=== PATIENT | female | born 1965 | race Caucasian/White ===

== ENCOUNTER 2019-08-07 12:36 | Day surgery (SDC) | payer BC ==
[2019-08-07] MEDS ORDERED: LIDOCAINE 2% MDV (20MG/ML) 20ML VIAL IV ONE (12:37)
[2019-08-07] MEDS ORDERED: PROPOFOL 10 MG/ML VIAL IV ONE (12:37)
--- NOTE | 2019-08-09 10:10 | Operative Note ---
OPERATION: COLONOSCOPY to the cecum with cold biopsy forceps polypectomy x1. INDICATION: Colorectal cancer screening. ANESTHESIA: Intravenous sedation was administered by the department of anesthesiology and included Diprivan titrated to effect. PROCEDURE: Following informed consent from this alert individual including a discussion of the risks and benefits of the procedure and an opportunity for the patient to ask questions, the patient was in the left lateral decubitus position. A digital rectal examination was performed. No abnormalities were noted. Following this, the Olympus [id number] video colonoscope was inserted into the rectum without resistance. The rectal mucosa initially as visualized had a normal appearance with normal folds and distensibility. There was some retained liquid and semi-solid stool noted. The colonoscope was advanced up to the level of the cecum with some difficulty due mostly to retained liquid and semi-solid stool. Washing and suctioning was employed vigorously throughout. The cecum was defined by noting the appendiceal orifice and ileocecal valve. From the base of the cecum, the colonoscope was slowly withdrawn. Again washing and suctioning was employed vigorously; however, there was retained semi-solid stool noted. As best visualized, no mucosal changes were appreciated until the rectum was reached. With retroflexion within the rectum, there was a diminutive distal rectal polyp which was removed by cold biopsy forceps. The endoscope was straightened and withdrawn. The patient tolerated the procedure well and was returned to the recovery area in stable condition. IMPRESSION: 1. Diminutive 3 mm distal rectal polyp removed with biopsy forceps. 2. Fair to poor colon preparation. RECOMMENDATIONS: Further recommendations will be forthcoming pending results of pathology obtained today. I did recommend a repeat examination with additional colon preparation in the next 2-3 months due to the poor prep. As always, thank you for allowing me to participate in the care of your patient. GABRIELA
== END 2019-08-07 14:55 | disposition home or self-care (01) ==
LOC: HOP 12:36
PROVIDERS: ATTEND Internal Medicine Gastroenterology
DX: Z12.11 Encounter for screening for malignant neoplasm of colon (principal); K62.1 Rectal polyp; Z91.19 Patient's noncompliance with other medical treatment and regimen

== ENCOUNTER 2019-11-20 08:31 | Day surgery (SDC) | payer BC ==
[2019-11-20] MEDS ORDERED: PROPOFOL 10 MG/ML VIAL IV ONE (08:32)
[2019-11-20] MEDS ORDERED: LIDOCAINE 2% MDV (20MG/ML) 20ML VIAL IV ONE (08:32)
--- NOTE | 2019-11-21 06:01 | Operative Note ---
OPERATION: COLONOSCOPY to the cecum. INDICATION: Colorectal cancer screening. The patient actually was here 2 months ago or so with a poor colon preparation. She returns at this time for repeat examination. She did have a hyperplastic polyp removed from the rectum in the past. ANESTHESIA: Intravenous sedation was administered by the department of anesthesiology and included Diprivan titrated to effect. PROCEDURE: Following informed consent from this alert individual including a discussion of the risks and benefits of the procedure and an opportunity for the patient to ask questions, the patient was in the left lateral decubitus position. A digital rectal examination was performed. No abnormalities were noted. Following this, the Olympus [id number] video colonoscope was inserted into the rectum without resistance. The rectal mucosa had a normal appearance with normal folds and distensibility. The colonoscope was advanced up through the bowel to the level of the cecum with some difficulty due to redundancy of the colon. She was actually placed in a supine position and abdominal pressure support supplied by the nursing staff to help facilitate the endoscope reaching the cecum. The cecum was well defined by noting the appendiceal orifice and ileocecal valve. From the base of the cecum, the colonoscope was then slowly withdrawn. Overall, the preparation was adequate. There was some liquid stool noted which was washed and suctioned through the colonoscope. No abnormalities were detected throughout the bowel upon withdrawal of the colonoscope. Retroflexion in the rectum was also endoscopically normal. The instrument was straightened and withdrawn. The patient tolerated the procedure well and was returned to the recovery area in stable condition. IMPRESSION: Unremarkable colonoscopy to the cecum. RECOMMENDATIONS: The patient was advised to have recheck colonoscopy in 10 years' time or sooner should problems arise. Followup will otherwise be with Freddy Stanford DO. As always, thank you for allowing me to participate in the care of your patient. GABRIELA
== END 2019-11-20 10:37 | disposition home or self-care (01) ==
LOC: HOP 08:31
PROVIDERS: ATTEND Internal Medicine Gastroenterology
DX: Z12.11 Encounter for screening for malignant neoplasm of colon (principal); Z87.19 Personal history of other diseases of the digestive system